=== PATIENT | female | born 1995 | race African-American/Black ===

== ENCOUNTER 2018-04-06 00:05 | Inpatient (IN) | payer BC, MEDICAID ==
[2018-04-06] MEDS ORDERED: BUTORPHANOL TARTRATE 2 MG/ML VIAL IV PRN (00:48)
[2018-04-06] MEDS ORDERED: PENICILLIN G POTASSIUM 5 MILLIONUNT in DEXTROSE 5 % IN WATER 100 ML IV ONE ×2 (00:48)
[2018-04-06] MEDS ORDERED: RINGER'S SOLUTION,LACTATED 1,000 ML IV ONE (00:48)
[2018-04-06 01:08] LABS: Hematocrit 30.6 % (37.0-47.0); Mean Cell Volume 77.5 fl (78-100); Mean Corpuscular Hemoglobin 27.8 pg (27-31); Mean Corpuscular Hgb Conc 35.9 g/dl (32-36); Mean Platelet Volume 10.1 fl (8-12.5); Neutrophil # 8.4 K/mm3 (1.3-6.0); Neutrophil % 67.9 % (42-75.0); Platelet Count 188 K/mm3 (150-450); Red Blood Count 3.95 M/mm3 (4.2-5.4); Red Cell Distribution Width 13.8 % (11.5-14.0); White Blood Count 12.4 K/mm3 (4.0-10.5)
[2018-04-06] MEDS: RINGER'S SOLUTION,LACTATED 1,000 ML IV PRN ×3 (01:09→21:34)
[2018-04-06] MEDS: MISOPROSTOL 100 MCG TABLET VG PRN ×2 (01:26→06:10)
[2018-04-06 02:37] LABS: Cocaine Ur Negative (NEGATIVE); Urine Barbiturate Negative (NEGATIVE); Urine Benzodiazepines Negative (NEGATIVE); Urine Opiates Negative (NEGATIVE); Urine PCP Negative (NEGATIVE); Urine THC Negative (NEGATIVE)
[2018-04-06] MEDS: PENICILLIN G POTASSIUM 2.5 MILLIONUNT in DEXTROSE 5 % IN WATER 100 ML IV SCH ×10 (05:00→20:55)
--- NOTE | 2018-04-06 12:55 | PN ---
Subjective - Date and Time Seen Date: 04/06/18 Subjective Narrative: labor note induction for GDM G1, 39 weeks GBS positive blood glucose 135 at admission, 93 and 91. s/p cytotec x 2 doses (0130, 0612) s/p 3 doses of penicillin cervix 3 cm, 75% and -3 FHR: reassuring contractions: irregular Plan: next dose of cytotec or pitocin as needed. consider AROM, but nursing is busy at this time. Radha Hayes MD Objective - Vitals Vitals: Last Vital Signs Temp 36.5 C 04/06/18 02:27 Pulse 88 04/06/18 02:27 Resp 16 04/06/18 02:27 BP 125/79 04/06/18 02:27 Pulse Ox 98 04/06/18 02:27 - Abnormal Lab Findings Abnormal Lab Findings: Abnormal Lab Results 04/06/18 Range/Units 01:00 WBC 12.4 H (4.0-10.5) K/mm3 RBC 3.95 L (4.2-5.4) M/mm3 Hgb 11.0 L (12.5-16.0) gm/dL Hct 30.6 L (37.0-47.0) % MCV 77.5 L (78-100) fl Immature Gran # (Auto) 0.05 H (0.000-0.0310) K/mm3 Neutrophils # 8.4 H (1.3-6.0) K/mm3
[2018-04-06] MEDS: OXYTOCIN/DEXTROSE 5%-WATER 30 UNITS/500 ML BAG IV ONE (16:04)
[2018-04-06] MEDS ORDERED: INSULIN REGULAR, HUMAN 100 UNITS in NORMAL SALINE 100 ML IV PRN ×2 (16:19)
[2018-04-07] MEDS ORDERED: ONDANSETRON HCL/PF 2 MG/ML VIAL IV PRN (00:22)
[2018-04-07] MEDS ORDERED: NALOXONE HCL 1 MG/1 ML SYRG IV PRN (00:22)
[2018-04-07] MEDS ORDERED: BUPIVACAINE HCL/PF 30 ML VIAL EP SCH (00:30)
[2018-04-07] MEDS: PENICILLIN G POTASSIUM 2.5 MILLIONUNT in DEXTROSE 5 % IN WATER 100 ML IV SCH ×10 (00:45→16:41)
--- NOTE | 2018-04-07 00:49 | ANES ---
Anesthesia Pre Procedure Eval Vitals/Labs: Last Vital Signs Temp 36.5 C 04/06/18 02:27 Pulse 88 04/06/18 02:27 Resp 16 04/06/18 02:27 BP 125/79 04/06/18 02:27 Pulse Ox 98 04/06/18 02:27 HOME MEDICATIONS vitamin,calcium,txepwvbf-llhd-hgmss acid tablet 1 tab PO DAILY 10/15/17 [Last Taken Unknown] buspirone 10 mg tablet 10 mg PO BID PRN #60 tab 01/28/18 [Last Taken Unknown] blood-glucose meter kit See Dose Instructions .ROUTE .MEDSUPPLY #1 ea 02/12/18 [Last Taken Unknown] ranitidine 150 mg capsule 150 mg PO DAILY 03/04/18 [Last Taken Unknown] blood sugar diagnostic strips See Dose Instructions .ROUTE .MEDSUPPLY #100 ea 03/05/18 [Last Taken Unknown] lancets 28 gauge See Dose Instructions .ROUTE .MEDSUPPLY #100 ea 03/05/18 [Last Taken Unknown] metformin 1,000 mg tablet 1,000 mg PO ONCE #60 tab 03/18/18 [Last Taken Unknown] valacyclovir 1 gram tablet 1,000 mg PO DAILY #30 tab 03/18/18 [Last Taken Unknown] metformin 500 mg tablet 500 mg PO DAILY #30 tab 03/19/18 [Last Taken Unknown] Allergies/Adverse Reactions: Allergies Allergy/AdvReac Type Severity Reaction Status Date / Time Tetracyclines Allergy Mild hives Verified 04/06/18 00:50 - Planned Procedure Planned Procedure: Labor epidural Medication List Reviewed:: Yes Allergies Verified: Yes Medical History (Last Reviewed 04/07/18 @ 00:49 by Jerod Carlson CRNA) Acne Onset Date: ~2011 Anxiety Onset Date: ~2014 Depression Onset Date: ~2014 Chlamydia Onset Date: Unknown Surgical History (Last Reviewed 04/07/18 @ 00:49 by Jerod Carlson CRNA) Hx of left knee surgery Onset Date: Unknown 7th grade Family History (Last Reviewed 04/07/18 @ 00:49 by Jerod Carlson CRNA) Father heart issue from drug abuse Mother Hypertension Anxiety Depression Diabetes borderline type II - Cardiovascular Tolerate Activity: Good Heart Sounds: S1 & S2, Regular - Anesthesia Assessment and Plan ASA Class: PS, II Anesthesia Type Plan: Epidural
--- NOTE | 2018-04-07 01:08 | ANES ---
Post Anesthesia Assessment - Vital Signs Vitals: Last Vital Signs Temp 36.5 C 04/06/18 02:27 Pulse 88 04/06/18 02:27 Resp 16 04/06/18 02:27 BP 125/79 04/06/18 02:27 Pulse Ox 98 04/06/18 02:27 Airway Patency: Normal - Mental Status Level Of Consciousness: Awake - N/V Assessment Nausea/Vomiting Presence: None Dehydration:: No
--- NOTE | 2018-04-07 01:08 | ANES ---
Anesthesia Procedure Note Procedure Note: ANESTHESIA PROCEDURE NOTE Date of Procedure: 04/07/2018. Time of procedure: 49. Performed by: Jerod Carlson CRNA Machine Load Clerk: None. Preprocedure diagnosis: Active labor. Post procedure diagnosis: Same. Procedure: Insertion of labor epidural. Indications: The patient is a 22 -year-old female in active labor requesting labor epidural for pain management. Findings: See below. Details of the procedure: The patient was placed in a sitting position. DuraPrep as well as Betadine swabs X3 was applied to the patient's back. Patient was then draped in a sterile fashion. Lidocaine 1% was infiltrated to the skin and subcutaneous tissues at the level of the L3-4 interspace. The epidural space was identified using a 18-gauge Tuohy needle with [id number] technique. Epidural catheter was inserted to a depth of 12 centimeters at skin. Negative test dose was elicited using 3 mL of 1.5% preservative-free lidocaine plus epinephrine 1 200,000. The epidural catheter was then taped and secured in place. A loading dose of 8 mL of 0.25% preservative-free bupivacaine was administered to the epidural catheter after negative aspiration for blood and CSF. EBL: Minimal. Fluids: N/A. Specimen: N/A. Post procedure condition: The patient tolerated the procedure well. No complications were noted. Thank you for this consultation. Jerod Carlson CRNA
[2018-04-07] MEDS: BUPIVACAINE HCL/0.9 % NACL/PF 250 ML EP PRN ×2 (01:51→10:11)
[2018-04-07] MEDS: RINGER'S SOLUTION,LACTATED 1,000 ML IV PRN (09:20)
--- NOTE | 2018-04-07 11:36 | ANES ---
Anesthesia Procedure Note Procedure Note: Lidocaine 2% + epinephrine 1:200K administered to epidural catheter @ 0855 for complaints of pelvic pain.
--- NOTE | 2018-04-07 11:38 | ANES ---
Anesthesia Procedure Note Procedure Note: 10 ml lidocaine 2% + epinephrine 1:200k administered to epidural catheter for complaints of breakthrough pelvic pain @ 0072.
--- NOTE | 2018-04-07 12:08 | ANES ---
Anesthesia Procedure Note Procedure Note: ANESTHESIA PROCEDURE NOTE Date of Procedure: 04/07/2018. Time of procedure: 1150. Performed by: Jerod Carlson CRNA Office Coordinator Receptionist: None. Preprocedure diagnosis: Active labor. Post procedure diagnosis: Same. Procedure: Removal and reinsertion of labor epidural. Indications: The patient is a 22 -year-old female in active labor whose pain is not controlled despite epidural catheter. Findings: See below. Details of the procedure: The patient was placed in a sitting position. The epidural catheter was removed intact. DuraPrep as well as Betadine swabs X3 was applied to the patient's back. Patient was then draped in a sterile fashion. Lidocaine 1% was infiltrated to the skin and subcutaneous tissues at the level of the L3-4 interspace. The epidural space was identified using a 18-gauge Tuohy needle with [id number]-ej-[id number] technique. Epidural catheter was inserted to a depth of 14 centimeters at skin. Negative test dose was elicited using 3 mL of 1.5% preservative-free lidocaine plus epinephrine 1 200,000. The epidural catheter was then taped and secured in place. A loading dose of 8 mL of 0.25% preservative-free bupivacaine was administered to the epidural catheter after negative aspiration for blood and CSF. EBL: Minimal. Fluids: N/A. Specimen: N/A. Post procedure condition: The patient tolerated the procedure well. No complications were noted. Thank you for this consultation. Jerod Carlson CRNA
[2018-04-07] MEDS ORDERED: ACETAMINOPHEN 500 MG TABLET PO ONE (18:02)
[2018-04-07] MEDS: OXYTOCIN/DEXTROSE 5%-WATER 30 UNITS/500 ML BAG IV ONE (18:36)
[2018-04-07] MEDS ORDERED: MISOPROSTOL 200 MCG TABLET RC ONE (18:45)
[2018-04-07] MEDS ORDERED: BENZOCAINE/MENTHOL 81 SPRAY CAN TP PRN (18:59)
[2018-04-07] MEDS ORDERED: diphenhydrAMINE HCL 25 MG CAPSULE PO PRN (18:59)
[2018-04-07] MEDS ORDERED: SENNOSIDES 8.6 MG TABLET PO PRN (18:59)
[2018-04-07] MEDS ORDERED: GLYCERIN/WITCH HAZEL LEAF 40 APPL BOX TP PRN (18:59)
[2018-04-07] MEDS ORDERED: BISACODYL 10 MG SUPP.RECT RC PRN (18:59)
[2018-04-07] MEDS ORDERED: ACETAMINOPHEN 500 MG TABLET PO PRN (18:59)
[2018-04-07] MEDS ORDERED: HYDROCORTISONE 30 APPL TUBE TP PRN (18:59)
--- NOTE | 2018-04-07 19:12 | OR ---
Operative Report - Dictated Report Narrative: Spontaneous Vaginal Delivery Note: 22 yo, G1, 39.1 weeks Induction for Gestational diabetes GBS positive on penicillin Induction: cytotec 25 mcg per vagina x 2 doses Augmentation: pitocin SROM Analgesia: epidural Progressed to complete without complications. Perineum cleaned with betadine. Pushed with good descent. Head delivered in HAMZAH over the perineum. Nuchal cord x 1, reduced while head was on the perineum. The anterior shoulder delivered, followed by the posterior shoulder and the rest of the baby. Baby cried at perineum. Baby placed on maternal abdomen for drying and care by the nursing. Cord was clamped at one minute of life and cut by the father of the baby. Cord blood was obtained. Placenta delivered intact with a 3 vessel cord. Cytotec 800 mcg placed per rectum after delivery prophylatically. Mother and baby tolerated the delivery well. Laceration: 1st degree vaginal. Repaired with 3-0 Vicryl suture. EBL 300 ml. : male, 3032 grams. 9/9. Time of delivery: 18:25 Radha Hayes MD History for Definition: * The number of deliveries resulting in a live the patient experienced prior to current hospitalization * The previous delivery of live twins or any live multiple gestation is co nsidered one live event. *If primagravida or nulliparous is documented select zero for the number of previous live births. Live Events: 0
[2018-04-07] MEDS: DOCUSATE SODIUM 100 MG CAPSULE PO SCH (21:19)
[2018-04-07] MEDS: IBUPROFEN 800 MG TABLET PO PRN (23:46)
[2018-04-08] MEDS: DOCUSATE SODIUM 100 MG CAPSULE PO SCH ×2 (08:59→21:03)
--- NOTE | 2018-04-08 11:52 | PN ---
Subjective - Date and Time Seen Date: 04/08/18 Subjective Narrative: day 1, s/p doing well. no complaints. . normal lochia. Objective - Vitals Vitals: Last Vital Signs Temp 36.4 C 04/08/18 09:00 Pulse 81 04/08/18 09:00 Resp 16 04/08/18 09:00 BP 103/69 04/08/18 09:00 Pulse Ox 100 04/08/18 09:00 - Exam Constitutional: Present: Alert, Oriented x3, Cooperative Respiratory: Present: no respiratory distress Cardiovascular/Chest: Present: normal peripheral pulses Abdomen: Present: soft, nontender, nondistended, other - fundus firm and below umbilicus Extremity: Present: normal range of motion, no pedal edema, no calf tenderness Skin Exam: Present: normal color, warm/dry, no cyanosis Appearance: Present: appropriate appearance Eye contact: Present: cooperative, good eye contact, normal speech Cauti Physician Documentation - Urinary Catheter Management Urethral ([facility]) Date of Insertion: 04/07/18 Time of Insertion: 01:33 Assessment/Plan Plan Narrative: A: day 1, s/p , stable and well. plan: routine care. ambulation encouraged. Radha Hayes MD
[2018-04-09] MEDS: oxyCODONE HCL/ACETAMINOPHEN 1 TAB TABLET PO PRN ×2 (07:15→12:30)
[2018-04-09] MEDS: DOCUSATE SODIUM 100 MG CAPSULE PO SCH ×2 (07:15→08:09)
[2018-04-09] MEDS: IBUPROFEN 800 MG TABLET PO PRN (12:31)
[2018-04-09 12:34] VITALS: BP 135/91
--- NOTE | 2018-04-09 12:41 | PN ---
Subjective - Date and Time Seen Date: 04/09/18 Subjective Narrative: day 2, s/p doing well. BP slightly high, may be chronic. no complaints. breast feeding. normal lochia. Objective - Vitals Vitals: Last Vital Signs Temp 36.3 C 04/09/18 07:15 Pulse 95 04/09/18 07:15 Resp 18 04/09/18 07:15 BP 135/91 H 04/09/18 12:34 Pulse Ox 100 04/09/18 07:15 - Exam Constitutional: Present: Alert, Oriented x3, Cooperative Respiratory: Present: no respiratory distress Cardiovascular/Chest: Present: normal peripheral pulses Abdomen: Present: soft, nontender, nondistended, other - fundus firm and -2. Extremity: Present: normal range of motion, no pedal edema, no calf tenderness Skin Exam: Present: normal color, warm/dry, no cyanosis Appearance: Present: appropriate appearance Eye contact: Present: cooperative, good eye contact, normal speech Cauti Physician Documentation - Urinary Catheter Management Urethral ([facility]) Date of Insertion: 04/07/18 Time of Insertion: 01:33 Assessment/Plan Plan Narrative: A: day 2, s/p , stable and well. Plan: will discharge today. Radha Hayes MD
== END 2018-04-09 17:20 | disposition home or self-care (01) | DRG 806 ==
LOC: OB 00:05
PROVIDERS: ADMIT Obstetrics & Gynecology; ATTEND Obstetrics & Gynecology
CPT/HCPCS: 36415; 59025; 80307; 85025; 86850; 86900